=== PATIENT | female | born 1995 | race Caucasian/White ===

== ENCOUNTER 2016-10-01 16:06 | Emergency (ER) | payer SELFPAY ==
[2016-10-01 17:11] LABS: Basophils % (Auto) 0.3 % (0.0-1.8); Eosinophils % (Auto) 1.4 % (0.0-4.3); Hematocrit 39.8 % (30.3-42.9); Hemoglobin 13.2 gm/dl (10.1-14.3); Mean Corpuscular HGB Conc 33 % (30-34); Mean Corpuscular Hemoglobin 29 pg (28-32); Mean Corpuscular Volume 87 fl (79-97); Platelet Count 164 K/mm3 (140-440); Red Blood Count 4.57 M/mm3 (3.65-5.03); Red Cell Distribution Width 13.6 % (13.2-15.2); White Blood Count 9.1 K/mm3 (4.5-11.0)
[2016-10-01 17:15] LABS: Anion Gap 16 mmol/L; Blood Urea Nitrogen 18 mg/dL (7-17); Calcium 9.2 mg/dL (8.4-10.2); Carbon Dioxide 25 mmol/L (22-30); Chloride 98.2 mmol/L (98-107); Glucose 86 mg/dL (65-100); Potassium 3.9 mmol/L (3.6-5.0); Sodium 135 mmol/L (137-145)
[2016-10-01 17:24] LABS: Bilirubin,Urine NEG (Negative); Blood,Urine NEG (Negative); Ketones,Urine NEG (Negative); Leukocyte Esterase,Urine MOD (Negative); Mucus,Urine FEW /HPF; Nitrite,Urine NEG (Negative)
[2016-10-01] MEDS ORDERED: ZITHROMAX PO ONE (19:11)
[2016-10-01] MEDS ORDERED: XYLOCAINE 1% MPF 5 mL INFILTRATI ONE (19:11)
[2016-10-01] MEDS ORDERED: ROCEPHIN IM ONE (19:11)
--- NOTE | 2016-10-01 19:12 | Emergency Department Report ---
ED Female HPI - General Chief complaint: Abdominal Pain Stated complaint: ABD PAIN Time Seen by Provider: 10/01/16 18:33 Source: patient Mode of arrival: Ambulatory Limitations: No Limitations - History of Present Illness Initial comments: 20-year-old female with 2 months of increasing vaginal discharge. States it is milky discharge with malodor. She has some dysuria and pain. She does not believe she is although she's had unprotected sex with several partners. She denies fevers chills nausea vomiting. MD Complaint: vaginal discharge, pelvic pain, possible STD -: Gradual Radiation: non-radiating Severity: mild Quality: cramping Worsens with: none Associated Symptoms: vaginal discharge. denies: vaginal bleeding, abdominal pain, nausea/vomiting - Related Data Sexually active: Yes Allergies Allergy/AdvReac Type Severity Reaction Status Date / Time No Known Allergies Allergy Unverified 10/01/16 16:15 ED Review of Systems ROS: Stated complaint: ABD PAIN Other details as noted in HPI Constitutional: denies: fever, malaise Eyes: denies: eye pain Respiratory: denies: see HPI, cough Cardiovascular: denies: edema, syncope Gastrointestinal: denies: nausea, vomiting Musculoskeletal: denies: back pain Psychiatric: anxiety ED Past Medical Hx - Past Medical History Hx Hypertension: Yes (WITH ) - Surgical History Past Surgical History?: No - Social History Smoking Status: Current Every Day Smoker Substance Use Type: Alcohol, Marijuana ED Physical Exam - General Limitations: No Limitations General appearance: alert, in no apparent distress - ENT ENT exam: Present: normal orophraynx - Respiratory Respiratory exam: Present: normal lung sounds bilaterally, respiratory distress - Cardiovascular Cardiovascular Exam: Present: regular rate, normal rhythm - GI/Abdominal GI/Abdominal exam: Present: soft. Absent: distended, tenderness - Speculum exam: Present: erythema, vaginal discharge, cervical discharge - Neurological Exam Neurological exam: Present: alert, oriented X3 - Psychiatric Psychiatric exam: Present: normal affect, normal mood - Skin Skin exam: Present: warm, dry ED Course Vital Signs 10/01/16 16:18 Temperature 98.8 F Pulse Rate 82 Respiratory 15 Rate Blood Pressure 138/91 O2 Sat by Pulse 100 Oximetry ED Medical Decision Making - Lab Data Result diagrams: 10/01/16 16:46 10/01/16 16:46 Laboratory Results - last 24 hr 10/01/16 10/01/16 10/01/16 16:46 16:46 16:46 WBC 9.1 RBC 4.57 Hgb 13.2 Hct 39.8 MCV 87 MCH 29 MCHC 33 RDW 13.6 Plt Count 164 Lymph % (Auto) 37.8 H [place] % (Auto) 7.3 Eos % (Auto) 1.4 Baso % (Auto) 0.3 Lymph # 3.4 [place] # 0.7 Eos # 0.1 Baso # 0.0 Seg Neutrophils % 53.2 Seg Neutrophils # 4.8 Sodium 135 L Potassium 3.9 Chloride 98.2 Carbon Dioxide 25 Anion Gap 16 BUN 18 H Creatinine 1.0 Estimated GFR > 60 BUN/Creatinine Ratio 18.00 Glucose 86 Calcium 9.2 HCG, Qual Negative Urine Color Urine Turbidity Urine pH Ur Specific [place] Urine Protein Urine Glucose (UA) Urine Ketones Urine Blood Urine Nitrite Urine Bilirubin Urine Urobilinogen Ur Leukocyte Esterase Urine WBC (Auto) Urine RBC (Auto) U Epithel Cells (Auto) Urine Mucus 10/01/16 16:49 WBC RBC Hgb Hct MCV MCH MCHC RDW Plt Count Lymph % (Auto) [place] % (Auto) Eos % (Auto) Baso % (Auto) Lymph # [place] # Eos # Baso # Seg Neutrophils % Seg Neutrophils # Sodium Potassium Chloride Carbon Dioxide Anion Gap BUN Creatinine Estimated GFR BUN/Creatinine Ratio Glucose Calcium HCG, Qual Urine Color Yellow Urine Turbidity Clear Urine pH 6.0 Ur Specific [place] 1.028 Urine Protein 30 mg/dl Urine Glucose (UA) Neg Urine Ketones Neg Urine Blood Neg Urine Nitrite Neg Urine Bilirubin Neg Urine Urobilinogen 4.0 Ur Leukocyte Esterase Mod Urine WBC (Auto) 10.0 H Urine RBC (Auto) 8.0 U Epithel Cells (Auto) 4.0 Urine Mucus Few - Medical Decision Making 20-year-old female with likely STD. Plan to treat with ceftriaxone and azithromycin and will discharge her with intravaginal Flagyl prescription. I counseled patient and she should follow up for HIV testing. I counseled her that she should have her partners treated. Portions of this chart were dictated with dictation software. There may be dictation errors contained within this note. Critical care attestation.: If time is entered above; I have spent that time in minutes in the direct care of this critically ill patient, excluding procedure time. ED Disposition Clinical Impression: Vaginal discharge, Possible exposure to STD Disposition: DC-01 TO HOME OR SELFCARE Is pt being admited?: No Condition: Stable Instructions: Abdominal Pain (ED), Sexually Transmitted Diseases (ED) Referrals: PRIMARY CARE,MD [Primary Care Provider] - 3-5 Days
[2016-10-01 20:29] VITALS: BP 118/70
== END 2016-10-01 20:34 | disposition home or self-care (01) ==
LOC: ED 16:06
DX: N89.8 Other specified noninflammatory disorders of vagina (principal); F17.200 Nicotine dependence, unspecified, uncomplicated; F12.10 Cannabis abuse, uncomplicated
CPT/HCPCS: 36415; 80048; 81001; 84703; 85025; 87210; 87591; 96372; 99284; J0696